=== PATIENT | male | born 2000 | race Caucasian/White ===

== ENCOUNTER 2019-10-22 18:28 | Emergency (ER) | payer MEDICAID ==
[~2019-10-22] VITALS: Ht 175.3 cm; Wt 55.3 kg
[2019-10-22 18:38] VITALS: Ht 175.3 cm; Wt 55.3 kg
[2019-10-22 20:01] LABS: BASOPHIL % 0.1 % (0-2); PLATELET COUNT 268 x10^3mcL (130-400)
[2019-10-22 20:07] LABS: CALCIUM 9.9 mg/dL (8.5-10.1); CARBON DIOXIDE 24.3 mmol/L (21-32); CHLORIDE SERUM 101 mmol/L (98-107); CREATININE SERUM 0.9 mg/dL (0.7-1.3); GFR1 > 60 mL/min; GLUCOSE SERUM 115 mg/dL (74-106); POTASSIUM SERUM 3.7 mmol/L (3.5-5.1); SODIUM SERUM 139 mmol/L (136-145)
[2019-10-22 20:11] LABS: ALBUMIN 4.8 g/dL (3.4-5.0); ALKALINE PHOSPHATASE 84 U/L (46-116); ALT/SGPT 20 U/L (16-63); AST/SGOT 16 U/L (15-37); BILIRUBIN TOTAL 1.18 mg/dL (0.20-1.00); LIPASE 102 IU/L (73-393); TOTAL PROTEIN, SERUM 8.1 g/dL (6.4-8.2)
[2019-10-22 21:54] VITALS: BP 146/80
[2019-10-22 22:25] LABS: microscopic required? NO
[2019-10-22 22:38] LABS: UA SPECIFIC GRAVITY 1.025 (1.005-1.035); urine erythrocyte NEGATIVE (NEGATIVE)
== END 2019-10-22 21:54 | disposition home or self-care (01) ==
LOC: ED 18:28
PROVIDERS: Student in an Organized Health Care Education/Training Program
DX: K29.70 Gastritis, unspecified, without bleeding (principal)
CPT/HCPCS: J7030; Q0162